=== PATIENT | female | born 1975 | race Caucasian/White ===

== ENCOUNTER 2017-10-12 01:13 | Emergency (ER) | payer OTHER, SELFPAY ==
[2017-10-12 01:21] VITALS: BMI 22.6
[2017-10-12 01:24] VITALS: BP 159/88; PULSE 122; RESP 20; TEMP 37.3; O2SAT 100
--- NOTE | 2017-10-12 01:32 | DI.CT.S_ITS ---
PROCEDURE: CT ABDOMEN PELVIS W CON INDICATIONS: RLQ pain with fever TECHNIQUE: After the administration of intravenous contrast, 5 mm thick sections acquired from the diaphragm to the symphysis. 5 mm coronal and sagittal reformats were acquired. For radiation dose reduction, the following was used: automated exposure control, adjustment of mA and/or kV according to patient size. COMPARISON: None. FINDINGS: Image quality: Excellent. ABDOMEN: Lung bases: Lung bases are clear except for what appears to be pneumonia in the medial segment right middle lobe. Heart size is normal. Solid organs: Liver is normal in size and enhancement. Gallbladder has been previously resected. Biliary system is non dilated. Pancreas enhances normally. Spleen is normal in size and enhancement. No adrenal nodules. Kidneys demonstrate normal size and enhancement, without hydronephrosis. Peritoneum and bowel: Bowel loops demonstrate normal wall thickness and caliber. No free fluid or air. Nodes and vessels: No retroperitoneal or mesenteric adenopathy by size criteria. Aorta and inferior vena cava are normal in size. Miscellaneous: No ventral hernias. PELVIS: Genitourinary: Bladder wall thickness is normal. Miscellaneous: No inguinal hernias or adenopathy. A normal or abnormal appendix could not be located. Bones: No suspicious bony lesions. No vertebral body compression fractures. IMPRESSION: Normal or abnormal appendix could not be found. Prior cholecystectomy. A source of right-sided pain and fever is identified at the medial segment right middle lobe where pneumonia appears present. Pneumonia in this area can produce right-sided abdominal pain but generally the pain would be in the right upper quadrant rather than the right lower quadrant. Dictated by: Michael Obrien M.D. on 10/12/2017 at 9:20 Approved by: Michael Obrien M.D. on 10/12/2017 at 9:22
--- NOTE | 2017-10-12 01:34 | ED.ABDPAIN ---
HPI - Abdominal Pain General Chief Complaint: Fever Stated Complaint: FEVER, RIGHT SIDE LOWER AREA PAIN,OVARIAN CYST Time Seen by Provider: 10/12/17 01:17 Source: patient and RN notes reviewed Mode of arrival: ambulatory Limitations: no limitations History of Present Illness HPI narrative: Patient is a 41-year-old female who presents right lower quadrant pain is ongoing for the last 4 days. She thought it was a ruptured ovarian cyst which she gets often on however the pain has persisted and she developed a fever this evening. The pain has always remained in the right side it did not migrate. She has not had any loss of appetite. She has not had any nausea vomiting or diarrhea. She has no painful or frequent urination. No flank pain. Her pain is much worse than she has ever had before. She did have a painful menstruation. Immediately after the pain started she says however her menses had slowed down on and the pain has gotten much worse. MD complaint: abdominal pain Onset (ago): day(s) (4) Location: RLQ Severity: severe Related Data Previous Rx's Medication Instructions Recorded levofloxacin [Levaquin] 750 mg PO Q24H 7 Days #7 tab 10/12/17 Allergies Allergy/AdvReac Type Severity Reaction Status Date / Time No Known Drug Allergies Allergy Verified 10/12/17 01:23 Review of Systems Review of Systems All systems reviewed & are unremarkable except as noted in HPI and below Constitutional Reports chills, Reports fatigue and Reports fever(s) Cardiovascular Denies dyspnea and Denies dyspnea on exertion Respiratory Denies cough, Denies dyspnea, Denies dyspnea on exertion and Denies wheezing Gastrointestinal Gastrointestinal: Reports system reviewed and no additional complaints, except as docu Genitourinary Denies hematuria, Denies flank pain, Denies urinary incontinence and Denies urinary urgency Musculoskeletal Denies back pain, Denies muscle weakness, Denies numbness and Denies tingling Integumentary/Breasts Denies pruritus, Denies erythema, Denies rash and Denies wounds Neurologic Denies numbness and Denies tingling Endocrine Reports fatigue Allergic/Immunologic Denies wheezing Exam Const General: cooperative, well developed and acute distress (In pain, tearful) Nutritional Appearance: well nourished Orientation: alert, awake, oriented x3 and not confused Neck Neck: full ROM and no meningeal signs Resp Effort & Inspection: normal respiratory effort, able to speak in complete sentences, no respiratory distress and no use of accessory muscles Auscultation: clear to auscultation bilaterally, no rales, no rhonchi and no wheezes Cardio Rate: regular rate Rhythm: regular rhythm Heart Sounds: no click, no gallops, no murmurs and no rubs Pulses: normal peripheral pulses GI Inspection: normal to inspection Palpation: soft and tender (Right lower quadrant with guarding, negative psoas sign) Auscultation: normal bowel sounds Skin General: no rashes or lesions noted, No jaundice and No petechiae Neuro General: alert, oriented x3, gait normal and no focal motor deficits Cranial Nerves: CN's II-XI intact bilaterally Speech: speech normal Motor: strength 5/5 throughout Sensory Exam: no sensory deficits noted MDM - Abdominal Pain MDM Narrative Medical decision making narrative: The patient is persistent ongoing right lower quadrant pain with leukocytosis. She has continued to have appetite and been eating she had a small decrease in appetite this evening. The pain did not migrate. Exam is concerning for appendicitis however CT is negative. Surgery has been consulted, unlikely to be appendicitis with a negative CT for pain ongoing for 4 days. I discussed at length with patient and on if the pain should continue or worsen return to the ER immediately and do not week. I will put her on some antibiotics. CT does note that she has or right middle lobe pneumonia. She does not have productive cough shortness of breath or signs or symptoms to clinically correlate with this. Differential Diagnosis Differential diagnosis: Likely abdominal pain, acute appendicitis, calculus of kidney, diverticulitis and endometriosis Lab Data Attestation: I reviewed the patient's lab results. Result diagrams: 10/12/17 01:40 10/12/17 01:40 Lab Results 10/12/17 10/12/17 Range/Units 01:40 01:40 WBC 16.4 H (4.5-11.0) X10^3/uL RBC 4.39 (4.0-5.2) X10^6/uL Hgb 14.6 (12.0-16.0) g/dL Hct 42.3 (36-46) % MCV 96.4 (80-100) fL MCH 33.2 (26-34) PG MCHC 34.4 (30-36) % RDW 12.8 (11.6-14.8) % Plt Count 243 (150-400) X10^3/uL Neut % (Auto) 85.6 H (50-75) % Lymph % (Auto) 7.7 L (25-40) % [place] % (Auto) 5.8 (3-14) % Eos % (Auto) 0.6 L (2-4) % Baso % (Auto) 0.3 (0-2) % Neut # (Auto) 01361 H (6670-8898) /uL Sodium 143 (137-145) mmol/L Potassium 3.8 (3.4-5.1) mmol/L Chloride 107.0 (98-107) mmol/L Carbon Dioxide 23.0 (22-32) mmol/L BUN 5.0 L (7-17) mg/dL Creatinine 0.60 (0.52-1.04) mg/dL Estimated GFR > 60.0 (>60) mL/min BUN/Creatinine Ratio 8.3 (6-22) Glucose 100 (70-100) mg/dL Calcium 9.2 (8.4-10.2) mg/dL Total Bilirubin 0.9 (0.2-1.3) mg/dL AST 18 (14-36) IU/L ALT 24 (9-52) IU/L Alkaline Phosphatase 90 (38-126) U/L Total Protein 7.4 (6.3-8.2) g/dL Albumin 4.3 (3.5-5.0) g/dL Globulin 3.1 (1.7-4.1) g/dL Albumin/Globulin Ratio 1.4 (1.0-2.8) Lipase 107 (23-300) U/L Imaging Data CT scan - abdomen: Radiologist's impression: shift coordinator report: Cholecystectomy, appendix is not identified with certainty but there are no signs of appendicitis, probable right middle lobe pneumonia. No acute intra-abdominal abnormality. Pelvic ultrasound: Radiologist's impression: shift coordinator report: Normal uterus ovaries not visualized. No adnexal masses or fluid collections. Course Orders Ordered: ED Orders 10/12/17 01:32 CT abdomen pelvis w con Stat 10/12/17 01:40 Complete Blood Count AUTO DIFF Stat Comprehensive Metabolic Panel Stat Lipase Stat 10/12/17 02:21 US pelvic complete Stat Discontinued Medications Hydrocodone Bitart/Acetaminophen (Vicodin Prepack) 1 bottle MISC SEEINSTR ONE Stop: 10/12/17 03:36 Last Admin: 10/12/17 03:44 Dose: 1 bottle Sodium Chloride (Normal Saline 0.9%) 1,000 mls @ 150 mls/hr IV CONT SOL Last Infusion: 10/12/17 03:47 Dose: 0 mls/hr Admin: 10/12/17 01:43 Dose: 150 mls/hr Ketorolac Tromethamine (Toradol) 30 mg IV NOW ONE Stop: 10/12/17 01:33 Last Admin: 10/12/17 01:42 Dose: 30 mg Levofloxacin (Levaquin) 750 mg PO NOW ONE Stop: 10/12/17 03:36 Last Admin: 10/12/17 03:44 Dose: 750 mg Morphine Sulfate (Morphine Sulfate) 5 mg IV NOW ONE Stop: 10/12/17 02:22 Last Admin: 10/12/17 02:27 Dose: 5 mg Ondansetron HCl (Zofran) 4 mg IV NOW ONE Stop: 10/12/17 01:33 Last Admin: 10/12/17 01:42 Dose: 4 mg Reevaluation(s) Reevaluation #1: Patient is re-evaluated after CT results and pain medication. She remains tender right lower quadrant negative psoas sign. No rash identified. Will check pelvic ultrasound Reevaluation #2: Pelvic ultrasound does not show any free fluid no ovarian cyst. Patient remains tender Consultations Consultation #1: Dr. Covarrubias surgery has been consulted in regards for concern for appendicitis. Ongoing abdominal pain for 4 days white count of 16 CT does not identify appendix ultrasound is negative, continues to have right-sided abdominal pain. Recommend antibiotics does not think it is appendicitis after 4 days in at no signs on CT. Time: 03:27 Last Vital Signs Temp 98.5 F 10/12/17 04:08 Pulse 79 10/12/17 04:08 Resp 16 10/12/17 04:08 BP 121/70 H 10/12/17 04:08 Pulse Ox 97 10/12/17 04:08 Discharge Plan Departure Patient Disposition: Home, Self-Care Clinical Impression: Abdominal pain Discharge Date/Time: 10/12/17 04:10 Interventions: ED Discharge Assessment Last Done: 10/12/17 04:09 Instructions: DI for Appendicitis -- Adult Activity Restrictions/Additional Instructions: *You have been diagnosed with abdominal pain *What to do: CT did not show any sign of appendicitis ultrasound negative *Take medications as directed *Follow up with your primary care provider in 2-3 days *Return to ER if you should have persistent or worsening abdominal pain, or any new, worsening or concerning symptoms Prescriptions: New levofloxacin [Levaquin] 750 mg tablet 750 mg PO Q24H 7 Days Qty: 7 RF: 0 Referrals: Jazzy Frazier ARNP [Non-Staff] -
[2017-10-12] MEDS: ONDANSETRON 4 MG/2 ML INJ IV (01:42)
[2017-10-12] MEDS: KETOROLAC 60 MG/2 ML VIAL 30 MG IV (01:42)
[2017-10-12] MEDS: SODIUM CHLORIDE 0.9% 1,000 ML 150 ML IV (01:43)
[2017-10-12 01:53] LABS: Add Manual Diff / Slide Review NO; Basophils Percent Auto 0.3 % (0-2); Eosinophils Percent Auto 0.6 % (2-4); Hematocrit 42.3 % (36-46); Hemoglobin 14.6 g/dL (12.0-16.0); Lymphocytes Percent Auto 7.7 % (25-40); Mean Corpuscular HGB Conc 34.4 % (30-36); Mean Corpuscular Hemoglobin 33.2 PG (26-34); Mean Corpuscular Volume 96.4 fL (80-100); Monocytes Percent Auto 5.8 % (3-14); Neutrophils Absolute Auto 14000 /uL (3000-5900); Neutrophils Percent Auto 85.6 % (50-75); Platelet Count 243 X10^3/uL (150-400); Red Blood Cell Count 4.39 X10^6/uL (4.0-5.2); Red Cell Distribution Width 12.8 % (11.6-14.8); White Blood Cell Count 16.4 X10^3/uL (4.5-11.0)
[2017-10-12 02:01] LABS: Alanine Aminotransferase 24 IU/L (9-52); Albumin 4.3 g/dL (3.5-5.0); Albumin Globulin Ratio 1.4 (1.0-2.8); Alkaline Phosphatase 90 U/L (38-126); Aspartate Aminotransferase 18 IU/L (14-36); BUN Creatinine Ratio 8.3 (6-22); Bilirubin Total 0.9 mg/dL (0.2-1.3); Calcium 9.2 mg/dL (8.4-10.2); Estimated Glomerular Filt Rate > 60.0 mL/min (>60); Globulin 3.1 g/dL (1.7-4.1); Glucose 100 mg/dL (70-100); HEMOLYSIS < 15 (0-50); Lipase 107 U/L (23-300); Potassium 3.8 mmol/L (3.4-5.1); Sodium 143 mmol/L (137-145); Total Protein 7.4 g/dL (6.3-8.2)
--- NOTE | 2017-10-12 02:14 | PC.NURSE ---
Pt c/o of a lot of pain, Dr Mendoza informed.
--- NOTE | 2017-10-12 02:21 | DI.US.S_ITS ---
PROCEDURE: US PELVIC COMPLETE INDICATIONS: RLQ pain, and fever hx of cyst TECHNIQUE: Real-time scanning was performed of the pelvic organs, with image documentation. Additional endovaginal scanning was necessary due to incomplete visualization of the adnexal and endometrial structures by transabdominal scanning. COMPARISON: [facility], CT, CT ABDOMEN PELVIS W CON, 10/12/2017, 1:46. FINDINGS: Transabdominal scanning: Limited scanning through the kidneys shows no hydronephrosis. No pathologic free abdominal or pelvic fluid. Endovaginal scanning: Uterus: Uterus is normal in size at 11.2 x 4.6 0.2 cm. The endometrium measures 6.0 mm in combined thickness. Ovaries: Ovaries not visualized. No adnexal masses seen. IMPRESSION: 1. Normal uterus. The ovaries are not identified. No adnexal masses or fluid collections seen. Dictated by: Remington LOYA Interpreted: Denise Cruz MD on 10/12/2017 at 8:05 Approved by: Denise Cruz M.D. on 10/12/2017 at 15:19
[2017-10-12] MEDS: MORPHINE 5 MG/ML INJ IV (02:27)
[2017-10-12 02:56] VITALS: BP 134/82; PULSE 88; RESP 18; O2SAT 95
[2017-10-12] MEDS: HYDROCODONE/ACET 5/325 PREPACK 1 BOTTLE MISC (03:44)
[2017-10-12] MEDS: levoFLOXacin 250 MG TABLET 750 MG PO (03:44)
[2017-10-12 04:08] VITALS: BP 121/70; PULSE 79; RESP 16; TEMP 36.9; O2SAT 97
== END 2017-10-12 04:10 | disposition home or self-care (01) ==
PROVIDERS: Emergency Provider Emergency Medicine
DX: R10.9 Unspecified abdominal pain (principal)
CPT/HCPCS: 36591; 74177; 76856; 80053; 81003; 81025; 83690; 85025; 96361; 96374; 96375; 99283; 99285; J1885; J2270; J2405; Q9967

== ENCOUNTER 2019-04-24 12:14 | Emergency (ER) | payer SELFPAY ==
[2019-04-24 12:20] VITALS: BP 159/100; PULSE 82; RESP 19; TEMP 36.6; O2SAT 97; BMI 28.8
--- NOTE | 2019-04-24 12:23 | DI.RAD.S_ITS ---
PROCEDURE: XR TIBIA FUBULA RT 2V INDICATIONS: injury right leg TECHNIQUE: 2 views of the tibia and fibula were acquired. COMPARISON: None. FINDINGS: Bones: No fractures or dislocations. No suspicious bony lesions. Soft tissues: No suspicious soft tissue calcifications or masses. IMPRESSION: No trauma found. Dictated by: Michael Obrien M.D. on 04/24/2019 at 13:59 Approved by: Michael Obrien M.D. on 04/24/2019 at 13:59
--- NOTE | 2019-04-24 12:24 | DI.RAD.S_ITS ---
PROCEDURE: XR KNEE RT 3V INDICATIONS: injury right leg TECHNIQUE: 3 views of the knee were acquired. COMPARISON: None. FINDINGS: Bones: No fractures or dislocations. No suspicious bony lesions. Soft tissues: No joint effusion. No suspicious soft tissue calcifications. IMPRESSION: No trauma found. Dictated by: Michael Obrien M.D. on 04/24/2019 at 13:59 Approved by: Michael Obrien M.D. on 04/24/2019 at 13:59
[2019-04-24] MEDS: HYDROCODONE/ACET 5/325 TABLET 2 TAB PO (12:47)
[2019-04-24] MEDS: ONDANSETRON 4 MG ODT SL (12:47)
[2019-04-24 13:38] LABS: RBC Urine None Seen (0-5/HPF)
--- NOTE | 2019-04-24 13:38 | ED.LOWEXIN ---
HPI - Extremity Injury (Lower) <KERON Pappas-BC - Last Filed: 04/24/19 15:32> General Chief Complaint: Extremity Injury, Lower Stated Complaint: Fell on Wednesday, Right Leg Pain Time Seen by Provider: 04/24/19 12:15 Source: patient Mode of arrival: Family Vehicle Limitations: no limitations History of Present Illness HPI Narrative: The patient is a 44-year-old female current smoker with history of right knee surgery who presents with a chief complaint of falling through scaffolding on Wednesday. She states she fell about 3 ft she complains of right leg pain and right knee pain. She denies hitting her head, any neck pain or back pain any numbness or tingling. She has tried THC, Tylenol, Motrin and oxycodone in order to feel better. She denies any loss of consciousness. She states she did not hit her head. She states that she has tried ice. She complains of lots of bruising on her right leg. She denies any other injuries and is in to the emergency department because she is concerned about her right leg. Related Data Previous Rx's Medication Instructions Recorded hydrocodone-acetaminophen [[place]] 1 tab PO Q4-6H PRN #7 tab 04/24/19 ondansetron 4 mg PO Q6H PRN #14 tab 04/24/19 Allergies Allergy/AdvReac Type Severity Reaction Status Date / Time No Known Drug Allergies Allergy Verified 10/12/17 01:23 Review of Systems <KERON Pappas-BC - Last Filed: 04/24/19 15:32> Review of Systems Narrative: GENERAL: Denies chills, fatigue, malaise, fever, sweats. HEENT: Denies sinus pain, ear pain, sore throat, difficulty swallowing, dizziness. RESPIRATORY: Denies dyspnea, cough, wheezing, hemoptysis, sputum. CARDIOVASCULAR: Denies chest pain, palpitations, orthopnea, edema, GASTROINTESTINAL: Denies nausea, vomiting, abdominal pain, diarrhea, constipation, melena. : Denies dysuria, frequency, incontinence, hematuria, urinary retention. MUSCULOSKELETAL: See HPI SKIN: See HPI NEUROLOGIC: Denies weakness, headache, numbness, change in speech, confusion, seizures, incoordination. PSYCHIATRIC: No concerning psychosocial issues. 12 point review of systems is negative except for those stated above Patient History <RANDI Pappas - Last Filed: 04/24/19 15:32> Surgical History (Updated 04/24/19 @ 13:40 by RANDI Pappas) History of right knee surgery (Acute) Social History Smoking Status: Current every day smoker alcohol intake frequency: a few times a week Alcohol type: wine and hard liquor Substance Use Type: does not use Exam <RANDI Pappas - Last Filed: 04/24/19 15:32> Narrative Exam Narrative: GENERAL: This is a well-nourished, well-developed patient, appears uncomfortable HEAD: Atraumatic. Normocephalic. No temporal or scalp tenderness. EYES: Pupils equal round and reactive. Extraocular motions intact. No scleral icterus. No injection or drainage. ENT: Nose without bleeding, purulent drainage or septal hematoma. Throat without erythema, tonsillar hypertrophy or exudate. Uvula midline. Airway patent. NECK: Trachea midline. No JVD or lymphadenopathy. Supple, nontender, no meningeal signs. CARDIOVASCULAR: Regular rate and rhythm RESPIRATORY: Clear to auscultation. Breath sounds equal bilaterally. No wheezes, rales, or rhonchi. No cough. No increased respiratory effort. No accessory muscle use. GASTROINTESTINAL: Abdomen soft, non-tender, nondistended. No hepato-splenomegaly, or palpable masses. No guarding. EXTREMITIES: General pain to palpation noted right knee and leg. Positive pedal pulses right leg. BACK: Nontender without deformity or crepitance. No flank tenderness. No pain to CT or L-spine palpation NEURO: AOx3. SKIN: Diffuse ecchymosis noted on lateral aspect of right knee and right lower leg. Skin is intact with no lacerations noted. Initial Vital Signs Initial Vital Signs: Vital Signs Temperature 97.8 F 04/24/19 12:20 Pulse Rate 82 04/24/19 12:20 Respiratory Rate 19 04/24/19 12:20 Blood Pressure 159/100 H 04/24/19 12:20 Pulse Oximetry 97 04/24/19 12:20 <Kristie Betancourt MD - Last Filed: 04/24/19 15:52> Initial Vital Signs Initial Vital Signs: Vital Signs Temperature 97.8 F 04/24/19 12:20 Pulse Rate 82 04/24/19 12:20 Respiratory Rate 19 04/24/19 12:20 Blood Pressure 159/100 H 04/24/19 12:20 Pulse Oximetry 97 04/24/19 12:20 Procedures <RANDI Pappas - Last Filed: 04/24/19 15:32> Orthopedic Splinting/Casting Injury #1: Side: right Lower Extremity Injury Location: knee Lower Extremity Immobilizer: knee immobilizer Post splinting neuro exam: intact Post splinting vascular exam: intact Placed by: Nursing Scores <RANDI Pappas - Last Filed: 04/24/19 15:32> GCS [place] coma scale eye opening: Spontaneous [place] coma scale verbal response: Orientated [place] coma scale motor response: Obey commands [place] coma scale total score: 15 Nexus Score for C-Spine Focal Neurologic deficit present: No Midline spinal tenderness present: No Altered level of conciousness present: No Intoxication present: No Distracting Injury Present: No Nexus Criteria for C-spine: 0 Course <RANDI Pappas - Last Filed: 04/24/19 15:32> Orders Ordered: ED Orders 04/24/19 12:23 XR tibia fibula RT 2V Stat 04/24/19 12:24 XR knee RT 3V Stat 04/24/19 12:40 Urine Culture Stat Urine Microscopic Stat Discontinued Medications Hydrocodone Bitart/Acetaminophen ([place] 5/325) 2 tab PO NOW ONE Stop: 04/24/19 12:39 Last Admin: 04/24/19 12:47 Dose: 2 tab Documented by: SALINAS Ondansetron HCl (Zofran Odt) 4 mg SL NOW ONE Stop: 04/24/19 12:39 Last Admin: 04/24/19 12:47 Dose: 4 mg Documented by: SALINAS Vital Signs Vital signs: Vital Signs - 8 hr 04/24/19 12:20 04/24/19 13:39 Temperature 97.8 F Pulse Rate 82 65 Respiratory Rate 19 17 Blood Pressure 159/100 H Blood Pressure [Right Arm] 136/85 Pulse Oximetry 97 98 <Kristie Betancourt MD - Last Filed: 04/24/19 15:52> Orders Ordered: ED Orders 04/24/19 12:23 XR tibia fibula RT 2V Stat 04/24/19 12:24 XR knee RT 3V Stat 04/24/19 12:40 Urine Culture Stat Urine Microscopic Stat Discontinued Medications Hydrocodone Bitart/Acetaminophen ([place] 5/325) 2 tab PO NOW ONE Stop: 04/24/19 12:39 Last Admin: 04/24/19 12:47 Dose: 2 tab Documented by: SALINAS Ondansetron HCl (Zofran Odt) 4 mg SL NOW ONE Stop: 04/24/19 12:39 Last Admin: 04/24/19 12:47 Dose: 4 mg Documented by: SALINAS Vital Signs Vital signs: Vital Signs - 8 hr 04/24/19 12:20 04/24/19 13:39 Temperature 97.8 F Pulse Rate 82 65 Respiratory Rate 19 17 Blood Pressure 159/100 H Blood Pressure [Right Arm] 136/85 Pulse Oximetry 97 98 MDM - Extremity Injury (Lower) <RANDI Pappas - Last Filed: 04/24/19 15:32> Lab Data Labs: Lab Results 04/24/19 Range/Units 12:40 Urine RBC None seen (0-5/HPF) Urine WBC 1-5/hpf (0-5/HPF) Ur Squamous Epith Cells 1-5 /hpf (0-5/HPF) Urine Bacteria Many (>30) H (None) Ur Culture Indicated? Specimen cultured Point of Care Testing Test Results Negative Urine Dip Bedside Urine Glucose Negative Bedside Urine Bilirubin - Negative Bedside Urine Ketone - Negative Urine Specific [place] 6.5 Bedside Urine Occult Blood - Negative Bedside Urine pH 6.5 Bedside Urine Protein - Negative Bedside Urine Urobilinogen - Negative Bedside Urine Nitrite - Negative Bedside Urine Leukocytes +/- 15 Esterase Imaging Data right knee xray : Radiologist's impression: [address] [id number] XRay Report Signed Patient: Kae Yap KMR#: [id number] : 1975Acct:[id number] Age/Sex: 44 / FDate of Service: 04/24/19 Loc: ED Accession Number: [id number] Procedure: XR knee RT 3V Ordering Provider: Beth Shanks PROCEDURE: XR KNEE RT 3V INDICATIONS: injury right leg TECHNIQUE: 3 views of the knee were acquired. COMPARISON: None. FINDINGS: Bones: No fractures or dislocations. No suspicious bony lesions. Soft tissues: No joint effusion. No suspicious soft tissue calcifications. IMPRESSION: No trauma found. Dictated by: Michael Obrien M.D. on 04/24/2019 at 13:59 Approved by: Michael Obrien M.D. on 04/24/2019 at 13:59 right tib/fib xray : Radiologist's impression: [address] [id number] XRay Report Signed Patient: Kae Yap KMR#: [id number] : 1975Acct:[id number] Age/Sex: 44 / FDate of Service: 04/24/19 Loc: ED Accession Number: [id number] Procedure: XR tibia fibula RT 2V Ordering Provider: Beth Shanks PROCEDURE: XR TIBIA FUBULA RT 2V INDICATIONS: injury right leg TECHNIQUE: 2 views of the tibia and fibula were acquired. COMPARISON: None. FINDINGS: Bones: No fractures or dislocations. No suspicious bony lesions. Soft tissues: No suspicious soft tissue calcifications or masses. IMPRESSION: No trauma found. Dictated by: Michael Obrien M.D. on 04/24/2019 at 13:59 Approved by: Michael Obrien M.D. on 04/24/2019 at 13:59 MDM Narrative Medical decision making narrative: The patient is a 44-year-old female who presents with a chief complaint of leg pain after a fall off of scaffolding a few days ago. She is neurovascularly intact. X-rays show no fracture, though we did discuss the possibility of occult fracture. She has extensive bruising so I did give her prescription of [place] stating that can be constipating and sedating encourage PCP follow-up in gave her contact information [facility] health human resources compensation analyst. GCS 15 throughout her stay in the emergency department. Encouraged rest ice compression elevation. Patient has no questions or concerns upon discharge and states understanding of return precautions as well as follow-up care. <Kristie Betancourt MD - Last Filed: 04/24/19 15:52> Lab Data Labs: Lab Results 04/24/19 Range/Units 12:40 Urine RBC None seen (0-5/HPF) Urine WBC 1-5/hpf (0-5/HPF) Ur Squamous Epith Cells 1-5 /hpf (0-5/HPF) Urine Bacteria Many (>30) H (None) Ur Culture Indicated? Specimen cultured Point of Care Testing Test Results Negative Urine Dip Bedside Urine Glucose Negative Bedside Urine Bilirubin - Negative Bedside Urine Ketone - Negative Urine Specific [place] 6.5 Bedside Urine Occult Blood - Negative Bedside Urine pH 6.5 Bedside Urine Protein - Negative Bedside Urine Urobilinogen - Negative Bedside Urine Nitrite - Negative Bedside Urine Leukocytes +/- 15 Esterase Discharge Plan Departure Patient Disposition: Home Clinical Impression: Leg pain, right Contusion Qualifiers: Encounter type: initial encounter Contusion area: lower leg Laterality: right Qualified Code(s): S80.11XA - Contusion of right lower leg, initial encounter Fall Qualifiers: Encounter type: initial encounter Qualified Code(s): W19.XXXA - Unspecified fall, initial encounter Discharge Date/Time: 04/24/19 14:33 Instructions: DI for Contusion, How To Perform RICE (Rest, Ice, Compress, Elevate), How to Use a Knee Immobilizer Activity Restrictions/Additional Instructions: As I discussed, your x-ray shows no acute fracture. This does not rule out a soft tissue injury such as a ligament or tendon injury. It is important that you follow up with primary care provider, especially if worsening or no improvement. There can be fractures that did not show up on initial x-ray. Please follow up with primary care provider. Please use rest ice compression elevation. Please use [id number] pain medications as needed And able. I have given you a small prescription of [place] given her injury. Be aware this already has Tylenol in it. Be aware this can be constipating or sedating. Please come back to emergency department for any acute concerns. Prescriptions: New hydrocodone-acetaminophen [[place]] 5-325 mg tablet 1 tab PO Q4-6H PRN (Reason: pain) Qty: 7 RF: 0 ondansetron 4 mg tablet,disintegrating 4 mg PO Q6H PRN (Reason: nausea and vomiting) Qty: 14 RF: 0 Referrals: [facility] Resources [Outside]
[2019-04-24 13:39] VITALS: BP 136/85; PULSE 65; RESP 17; O2SAT 98
[2019-04-24 13:50] LABS: Bacteria Urine Many (>30); Squamous Epithelial Cell Urine 1-5 /HPF (0-5/HPF); WBC Urine 1-5/HPF (0-5/HPF)
[2019-04-24 13:51] LABS: Culture Indicated Urine Specimen Cultured
== END 2019-04-24 14:33 | disposition home or self-care (01) ==
PROVIDERS: Emergency Provider Nurse Practitioner Family
DX: S80.11XA Contusion of right lower leg, initial encounter (principal); W12.XXXA Fall on and from scaffolding, initial encounter
CPT/HCPCS: 29530; 73562; 73590; 81003; 81015; 81025; 87077; 87086; 87186; 99283